=== PATIENT | female | born 1995 | race Caucasian/White ===

== ENCOUNTER 2016-10-31 18:12 | Emergency (ER) | payer OTHER ==
[~2016-10-31] VITALS: Ht 154.9 cm; Wt 56.7 kg
[~2016-10-31 18:12] MED LIST: FOLATE1 MG PO; IRON325 M2 PO; IRON65 M2 PO; PRENATAL VITAMI1 T10 PO
[2016-10-31 18:28] VITALS: BP 116/70
--- NOTE | 2016-10-31 19:58 | NUR ---
PATIENT LEFT WITHOUT BEING SEEN BY DR. mancuso. NO FURTHER CARE PROVIDED FOR PATIENT.
== END 2016-10-31 19:58 | disposition left against medical advice (07) ==
LOC: MED 18:12
DX: N93.9 Abnormal uterine and vaginal bleeding, unspecified (principal); Z53.21 Procedure and treatment not carried out due to patient leaving prior to being seen by health care provider

== ENCOUNTER 2018-03-23 14:47 | Inpatient (IN) | payer OTHER ==
[~2018-03-23] VITALS: Ht 154.9 cm; Wt 65.3 kg
[~2018-03-23 14:47] MED LIST changes: +FERR-142 PO; -FOLATE1 MG PO; +FOLI1TAB19 PO; -IRON325 M2 PO; -IRON65 M2 PO; +PREN-385 PO; -PRENATAL VITAMI1 T10 PO
--- NOTE | 2018-03-23 14:59 | NUR ---
Patient transferred to bed 8 via wheelchair by natalie, accompanied by family. RN evaluating patient at bedside.
[2018-03-23 15:07] VITALS: BP 95/48
[2018-03-23] MEDS ORDERED: NACL 0.9% 1,000 ML IV ONE ×3 (15:15→18:00)
--- NOTE | 2018-03-23 15:24 | NUR ---
PT C/O VAG BLEED W/ LOWER ABD PAIN;PT 9 WEEKS ; DENIES N/V;PT WAS DX W/ ECTOPIC AND TOOK SOME PILLS TO TERMINATE . PATIENT APPEARS PALE, DIAPHORETIC, AND LETHARGIC. 2 IV STARTED. 20RIGHT AC AND 18LEFT FOREARM. PATIENT STATES PAIN OF 0/10 AT THIS TIME; VSS; PATIENT POSITIONED FOR COMFORT; HOB ELEVATED; BEDRAILS UP X1; BED DOWN. ER MD MADE AWARE OF PT STATUS.
[2018-03-23 15:38] LABS: BASOPHILS # (AUTO) 0.1 K/uL (0.00-0.22); BASOPHILS % (AUTO) 0.3 % (0.0-2.0); EOSINOPHILS # (AUTO) 0.3 K/uL (0-0.4); EOSINOPHILS % (AUTO) 1.6 % (0.0-4.0); HEMATOCRIT 35.9 % (36-48); HEMOGLOBIN 11.5 g/dL (12.0-16.0); LYMPHOCYTES # (AUTO) 3.8 K/uL (2.5-16.5); LYMPHOCYTES % (AUTO) 17.7 % (20.5-51.1); MEAN CORPUSCULAR HEMOGLOBIN 28 pg (27-31); MEAN CORPUSCULAR HGB CONC 32 g/dL (33-37); MEAN CORPUSCULAR VOLUME 86.3 fL (80-94); MONOCYTES # (AUTO) 1.1 K/uL (0.8-1.0); MONOCYTES % (AUTO) 5.3 % (1.7-9.3); NEUTROPHILS % (AUTO) 75.1 % (42.2-75.2); PLATELET COUNT (AUTO) 304 K/uL (140-450); RED BLOOD CELL COUNT(AUTO) 4.16 MIL/uL (4.20-5.40); RED CELL DISTRIBUTION WIDTH 13.1 % (11.6-13.7); WHITE BLOOD COUNT (AUTO) 21.3 K/uL (4.8-10.8)
[2018-03-23 15:55] LABS: ANION GAP 14.6 (8-16); CARBON DIOXIDE 21.6 mmol/L (21-32); CREATININE 0.9 mg/dL (0.6-1.3); POTASSIUM 3.2 mmol/L (3.5-5.1)
--- NOTE | 2018-03-23 16:00 | NUR ---
PT HAD A SYNCOPAL EPISODE IN LOBBY
[2018-03-23 16:30] LABS: PROTHROMBIN TIME 9.7 secs (10.8-13.4)
[2018-03-23 17:23] LABS: APPEARANCE,URINE BLOODY (CLEAR); BILIRUBIN,URINE NEGATIVE (NEGATIVE); BLOOD, URINE 3+ (NEGATIVE); COLOR,URINE RED (YELLOW); LEUKOCYTE ESTERASE ,URINE NEGATIVE (NEGATIVE); NITRITE, URINE NEGATIVE (NEGATIVE); UGLUCOSE NEGATIVE (NEGATIVE)
[2018-03-23 17:24] LABS: RBC,URINE TOO NUMEROUS TO COUN /HPF (0-5); WBC,URINE 0-5 (RARE) /HPF (0-5)
[2018-03-23 18:24] LABS: BASOPHILS % (AUTO) 0.1 % (0.0-2.0); EOSINOPHILS % (AUTO) 0.4 % (0.0-4.0); HEMATOCRIT 27.1 % (36-48); HEMOGLOBIN 8.6 g/dL (12.0-16.0); LYMPHOCYTES # (AUTO) 1.1 K/uL (2.5-16.5); LYMPHOCYTES % (AUTO) 9.3 % (20.5-51.1); MEAN CORPUSCULAR HEMOGLOBIN 28 pg (27-31); MEAN CORPUSCULAR HGB CONC 32 g/dL (33-37); MEAN CORPUSCULAR VOLUME 86.9 fL (80-94); MONOCYTES # (AUTO) 0.4 K/uL (0.8-1.0); MONOCYTES % (AUTO) 3.5 % (1.7-9.3); NEUTROPHILS # (AUTO) 9.9 K/uL (1.8-7.7); NEUTROPHILS % (AUTO) 86.7 % (42.2-75.2); PLATELET COUNT (AUTO) 170 K/uL (140-450); RED BLOOD CELL COUNT(AUTO) 3.12 MIL/uL (4.20-5.40); RED CELL DISTRIBUTION WIDTH 13.2 % (11.6-13.7); WHITE BLOOD COUNT (AUTO) 11.4 K/uL (4.8-10.8)
--- NOTE | 2018-03-23 18:30 | NUR ---
PT HAS HAD 2 SYNCOPAL EPISODES IN ER
[2018-03-23] MEDS ORDERED: DOCUSATE SODIUM 100 MG GELCAP PO PRN (18:50)
[2018-03-23] MEDS ORDERED: ONDANSETRON 4 MG/2 ML VIAL IM/IVP PRN (18:50)
--- NOTE | 2018-03-23 19:23 | NUR ---
Pt transferred to Tele via bed with lorena Young 122B.
--- NOTE | 2018-03-23 19:23 | NUR ---
Patient will be admitted to care of [facility]. Admited to TELE . Will go to room 122B. Belongings list completed. Report to PAT MORGAN.
--- NOTE | 2018-03-23 19:25 | NUR ---
PT ARRIVED ON UNIT VIA GURNEY WITH ER NURSE. PT IN STABLE CONDITION. PT ACCOMPANIED BY . PT IS AAOX4. PT IS ON RA. IV ACCESS IN L FA 18G AND R AC 20G. IVS ARE PATENT AND INTACT. PT SKIN IS INTACT. PT HAS NO C/O PAIN AT THIS TIME. MRSA SWAB COLLECTED. ORIENTED PT TO ROOM AND USE OF CALL LIGHT. BED IS LOCKED, LOW POSITION WITH SIDE RAILS UP X2. CALL LIGHT IS WITHIN REACH. BOARD UPDATED. WILL CONTINUE TO MONITOR PT.
[2018-03-23 19:35] LABS: CHOL/HDL RATIO 2.6 (1-4.5); MAGNESIUM 1.8 mg/dL (1.8-2.4); PHOSPHORUS 3.8 mg/dL (2.5-4.9); THYROID STIMULATING HORMONE 1.34 uIU/mL (0.34-3.74)
[2018-03-23 19:40] VITALS: BP 91/53
[2018-03-23 20:06] LABS: BARBITURATE, URINE NEG. ng/ml (NEG <=200); BENZODIAZEPINE, URINE NEG. ng/mL (NEG <=200); CANNABINOID, URINE NEG. ng/mL (NEG <=50); COCAINE, URINE NEG. ng/mL (NEG <=300); OPIATE, URINE NEG. ng/mL (NEG <=2000); PHENCYCLIDINE SCREEN,URINE NEG. ng/mL (NEG <=25)
[2018-03-23] MEDS ORDERED: POTASSIUM CHLORIDE 10 MEQ TABER PO SCH (20:15)
--- NOTE | 2018-03-23 20:45 | NUR ---
PER MD, PT ALLOWED TO HAVE SANDWICH AND WATER. PT TOLERATED WELL. NO C/O NAUSEA. WILL CONTINUE TO MONITOR.
[2018-03-23] MEDS: NACL 0.9% 1,000 ML IV SCH (21:09)
--- NOTE | 2018-03-23 21:10 | NUR ---
ADMINISTERED SCHEDULED MEDICATION AND STARTED ORDERED IVF. ASSISTED PT UP TO RESTROOM. PT TOLERATED WELL. NO REPORTS OF DIZZINESS. PT NOW BACK IN BED. WILL CONTINUE TO MONITOR PT.
--- NOTE | 2018-03-23 23:17 | NUR ---
PT ASLEEP IN BED. NO SIGNS OR SYMPTOMS OF DISTRESS. WILL CONTINUE TO MONITOR.
[2018-03-24] VITALS (9 sets, daily range): BP systolic 79–121; BP diastolic 42–62
--- NOTE | 2018-03-24 | NUR ---
PER MD REQUEST ORTHOSTATIC BP TAKEN: LAYING SUPINE 78/37, HR 79; SITTING 87/43, HR 87; STANDING 89/41 HR 112. PT TOLERATED WELL. NO SIGNS OR SYMPTOMS OF DISTRESS. MD NOTIFIED. MD REQUESTS BP BE REASSESSED IN 30 MIN. WILL CONTINUE TO MONITOR PT.
--- NOTE | 2018-03-24 00:32 | NUR ---
BP REASSESSED 79/[address] GROSS MADE AWARE. WILL WAIT FOR ORDERS.
[2018-03-24] MEDS ORDERED: NACL 0.9% 1,000 ML IV ONE (00:50)
--- NOTE | 2018-03-24 01:00 | NUR ---
BEGAN ORDERED IVF BOLUS. ASSISTED PT TO RESTROOM. PT TOLERATED WELL. NO SIGNS OR SYMPTOMS OF DISTRESS. WILL CONTINUE TO MONITOR.
--- NOTE | 2018-03-24 01:13 | NUR ---
POT OPERATOR HERE TO DRAW PT LABS.
[2018-03-24 01:29] LABS: BASOPHILS % (AUTO) 0.3 % (0.0-2.0); EOSINOPHILS # (AUTO) 0.1 K/uL (0-0.4); EOSINOPHILS % (AUTO) 1.3 % (0.0-4.0); HEMATOCRIT 21.5 % (36-48); HEMOGLOBIN 7.1 g/dL (12.0-16.0); LYMPHOCYTES # (AUTO) 1.6 K/uL (2.5-16.5); LYMPHOCYTES % (AUTO) 19.2 % (20.5-51.1); MEAN CORPUSCULAR HEMOGLOBIN 29 pg (27-31); MEAN CORPUSCULAR HGB CONC 33 g/dL (33-37); MEAN CORPUSCULAR VOLUME 86.4 fL (80-94); MONOCYTES # (AUTO) 0.6 K/uL (0.8-1.0); MONOCYTES % (AUTO) 6.6 % (1.7-9.3); NEUTROPHILS # (AUTO) 6.2 K/uL (1.8-7.7); NEUTROPHILS % (AUTO) 72.6 % (42.2-75.2); PLATELET COUNT (AUTO) 154 K/uL (140-450); RED BLOOD CELL COUNT(AUTO) 2.49 MIL/uL (4.20-5.40); RED CELL DISTRIBUTION WIDTH 13.3 % (11.6-13.7); WHITE BLOOD COUNT (AUTO) 8.6 K/uL (4.8-10.8)
--- NOTE | 2018-03-24 02:20 | NUR ---
PER MD REQUEST CONSENT OBTAINED FOR BLOOD TRANSFUSION. WILL CONTINUE TO MONITOR PT.
[2018-03-24] MEDS: NACL 0.9% 1,000 ML IV SCH ×3 (02:50→16:24)
--- NOTE | 2018-03-24 04:00 | NUR ---
ASSISTED PT UP TO BATHROOM. PT TOLERATED WELL. PT REPORTS VERY MINIMAL SPOTTING. PT NOW BACK IN BED. NO SIGNS OR SYMPTOMS OF DISTRESS. WILL CONTINUE TO MONITOR.
--- NOTE | 2018-03-24 05:41 | NUR ---
PT ASLEEP IN BED. NO SIGNS OR SYMPTOMS OF DISTRESS. WILL CONTINUE TO MONITOR.
--- NOTE | 2018-03-24 06:59 | NUR ---
NEW BAG OF IVF STARTED. PT HAS NO SIGNS OR SYMPTOMS OF DISTRESS. WILL CONTINUE TO MONITOR.
--- NOTE | 2018-03-24 07:03 | NUR ---
CALLED AND SAID THAT BECAUSE PT.TOOK PILL HE CAN NOT DO ANYTHING NOW.HE ORDERED TRANSFUSION 3 UNITS AND LASIX AFTER 2ND UNIT AND LAB AND RD TEST.
--- NOTE | 2018-03-24 07:20 | NUR ---
ENDORSED PT TO DAY SHIFT NURSE FOR CONTINUITY OF CARE. PT IN STABLE CONDITION.
--- NOTE | 2018-03-24 07:25 | NUR ---
RECEIVED REPORT FROM CHIEF LIFESTYLE OFFICER RN. PT IN STABLE CONDITION. AO X4. DENIES DIZZINESS OR FAINTING. STATED THERE IS SPOTTING ON TOILET PAPER AFTER URINATION. NO PROFUSE BLEEDING SEEN. PT IS AMBULATORY. DENIES DIZZINESS WHEN CHANGING POSITIONS FROM [id number]. COMPLAINING OF 2/10 MILD HEADACHE BUT DOES NOT NEED MEDICATION AT THIS TIME. WILL CONTINUE TO MONITOR. LUNGS CTA. HEART RHYTHM REGULAR. IV SITE PATENT AND ASYMPTOMATIC. ALL SAFETY PRECAUTIONS IN PLACE, WILL CONTINUE TO MONITOR.
--- NOTE | 2018-03-24 07:35 | NUR ---
PER DR. RICHARDS, TRANSFER PT TO ICU DUE TO HYPOTENSION THROUGHOUT THE NIGHT.
[2018-03-24] MEDS ORDERED: VANCOMYCIN PER PHARMACY MC PRN (07:50)
--- NOTE | 2018-03-24 08:12 | NUR ---
NOTIFIED DR. COPELAND THAT VITALS ARE BP 98/58, MAP 71, HR 91 NOW WITHOUT DIZZINESS AND ONLY SPOTTING BLOOD NOTED. PER DR. COPELAND, THE PLAN IS STILL TO TRANSFER TO ICU.
--- NOTE | 2018-03-24 08:28 | NUR ---
STARTED FIRST UNIT OF PRBC. WILL CONTINUE TO MONITOR. Addendum: 03/24/18 at 1053 by Althea Llamas Meng, RN 3 UNITS PRBC TOTAL TO BE TRANSFUSED.
--- NOTE | 2018-03-24 08:50 | NUR ---
RECEIVED PT TRANSFERRED FROM [facility], REPORT OBTAINED AT BEDSIDE, PT IS AAOX4, ABLE TO FOLLOW COMMANDS AND MAKE NEEDS KNOWN, C/O SLIGHT HEADACHE 6/10, NO S/S OF RESPIRATORY DISTRESS/SOB, CLEAR LUNG SOUNDS CATALINA. ON RA, DENIES CHEST PAIN, SR ON SURPLUS PROPERTY DISPOSAL AGENT NOTED, SOFT ABDOMEN WITH ACTIVE BOWEL SOUNDS, NPO EXCEPT MEDS, CONTINENT WITH B&B'S, ABLE TO MOVE ALL EXTREMITIES, IV SITE TO RIGHT AC, 20 GA, RUNNING RBC AT 100ML/HR, IV SITE TO LEFT FOREARM, 18 GA, RUNNING NS AT 150ML/HR. SKIN IS WARM AND DRY TO TOUCH, INTACT. EXPLAINED THE POC TO PT, PT VERBALIZED UNDERSTANDING, HOB ELEVATED, SAFETY MEASURES IN PLACE, CALL LIGHT WITHIN REACH, WILL CONTINUE TO MONITOR.
--- NOTE | 2018-03-24 08:50 | NUR ---
PATIENT TRANSFERRED TO ICU WITH BLOOD INFUSING AND ON TRANSPORT MONITOR. REPORT GIVEN TO REGIONAL PSYCHIATRIC DIRECTOR TUAN. PT IN STABLE CONDITION.
[2018-03-24] MEDS: ACETAMINOPHEN 325 MG TAB PO SCH ×3 (09:16→17:00)
--- NOTE | 2018-03-24 10:30 | NUR ---
DR. RUIZ CAME IN TO SEE PT AT BEDSIDE, WILL FOLLOW UP WITH NEW ORDERS.
--- NOTE | 2018-03-24 11:10 | NUR ---
FIRST UNIT OF RBC COMPLETED, NO ADVERSE EFFECTS NOTED, VSS, DENIES PAIN.
--- NOTE | 2018-03-24 11:45 | NUR ---
2ND UNITS OF RBC STARTED, VSS, WILL CONTINUE TO MONITOR.
--- NOTE | 2018-03-24 12:30 | NUR ---
DR. TAYLOR CAME IN TO SEE PT AT BEDSIDE, WILL FOLLOW UP WITH NEW ORDERS. FAMILY MEMBER AT BEDSIDE.
[2018-03-24] MEDS: FUROSEMIDE 20 MG TAB PO SCH ×2 (13:26→16:30)
--- NOTE | 2018-03-24 13:45 | NUR ---
2ND UNIT OF RBC COMPLETED, NO ADVERSE EFFECTS NOTED. VSS. DENIES PAIN.
--- NOTE | 2018-03-24 14:50 | NUR ---
3RD UNIT OF RBC STARTED, WILL CONTINUE TO MONITOR.
--- NOTE | 2018-03-24 17:30 | NUR ---
3RD UNITS OF RBC COMPLETED, NO ADVERSE EFFECTS NOTED, VSS, DENIES PAIN.
--- NOTE | 2018-03-24 18:10 | NUR ---
TRANSFERRED PT BACK TO ROOM 105B VIA BED, REPORT GIVEN TO EDDIE TOLLIVER AT BEDSIDE, PT IS STABLE AT THIS TIME, DENIES PAIN, VSS. ALL BELONGS GOES WITH PT.
--- NOTE | 2018-03-24 18:10 | NUR ---
RECEIVED PT FROM AMPOULE INSPECTOR. PT IN STABLE CONDITION. NO S/S ACUTE DISTRESS. V/S STABLE. DENIES PAIN AND DISCOMFORT. AO X4. ON BEDREST. PT AMBULATORY. LUNGS CTA. HEART RHYTHM REGULAR. PLACED ON TELE MONITOR. PT RECEIVED 3 UNITS PRBC IN ICU. IV SITE PATENT AND ASYMPTOMATIC, INFUSING IVF PER MD ORDERS. ALL SAFETY PRECAUTIONS IN PLACE, WILL CONTINUE TO MONITOR.
--- NOTE | 2018-03-24 19:10 | NUR ---
ENDORSED PLAN OF CARE TO BUNDLING MACHINE OPERATOR RN. PT IN STABLE CONDITION.
--- NOTE | 2018-03-24 19:15 | NUR ---
RECEIVED REPORT FROM DAY SHIFT NURSE, SHAREE, AT PT BEDSIDE. PT IN STABLE CONDITION. PT IS AAOX4. PT IS ON RA. IV ACCESS IN L FA 18G AND R AC 20G. IVS ARE PATENT AND INTACT. PT SKIN IS INTACT. PT HAS NO C/O PAIN AT THIS TIME. BED IS LOCKED, LOW POSITION WITH SIDE RAILS UP X2. CALL LIGHT IS WITHIN REACH. BOARD UPDATED. WILL CONTINUE TO MONITOR PT.
--- NOTE | 2018-03-24 19:15 | NUR ---
ENDORSED PLAN OF CARE TO VETERINARY MEDICINE TEACHER RN. PT IN STABLE CONDITION.
[2018-03-24] MEDS: PIPER/TAZO 3.375GM/D5W PREMIX 50 ML IV SCH (20:01)
--- NOTE | 2018-03-24 20:02 | NUR ---
ADMINISTERED SCHEDULED ANTIBIOTIC. PT TOLERATING WELL. ALL NEEDS ARE MET AT THIS TIME. WILL CONTINUE TO MONITOR.
--- NOTE | 2018-03-24 21:10 | NUR ---
ADMINISTERED SCHEDULED ANTIBIOTIC AND ASSISTED PT UP TO BATHROOM. PT NOW BACK IN BED. PT TOLERATED WELL. NO SIGNS OR SYMPTOMS OF DISTRESS. ALL OTHER NEEDS ARE MET AST THIS TIME. WILL CONTINUE TO MONITOR.
[2018-03-24] MEDS ORDERED: VANCOMYCIN 1GM/DEXT 5% PREMIX 200 ML IV SCH (22:00)
--- NOTE | 2018-03-24 22:30 | NUR ---
PT C/O OF SOME MILD ITCHINESS ON FACE AND ARMS. PT LOOKS FLUSHED IN FACE. STOPPED ANTIBIOTIC INFUSION. CHECKED VITALS T: 98.0, BP: 97/57, HR: 92, 02: 98%, RR: 14. PT HAS NO OTHER COMPLAINTS. INFORMED DR. GROSS, CAME TO SEE PT. TOLD ME TO STOP VANCO INFUSION AND LET HER KNOW IF PT CONTINUES TO FEEL ITCHY. WILL CONTINUE TO MONITOR PT.
--- NOTE | 2018-03-24 23:34 | NUR ---
PT C/O ITCHINESS. BENADRYL GIVEN. PT TOLERATED WELL. ALL OTHER NEEDS ARE MET AT THIS TIME. WILL CONTINUE TO MONITOR.
[2018-03-25] VITALS: BP 97/64
[2018-03-25] MEDS ORDERED: diphenhydrAMINE 50 MG/ML VIAL IVP SCH
[2018-03-25] MEDS: NACL 0.9% 1,000 ML IV SCH ×2 (01:45→05:30)
--- NOTE | 2018-03-25 01:45 | NUR ---
NEW BAG OF IVF STARTED. PT SLEEPING COMFORTABLY IN BED. NO SIGNS OR SYMPTOMS OF DISTRESS. WILL CONTINUE TO MONITOR.
--- NOTE | 2018-03-25 02:55 | NUR ---
PT RESTING COMFORTABLY IN BED. NO SIGNS OF DISTRESS. ALL NEEDS ARE MET AT THIS TIME.
[2018-03-25 04:00] VITALS: BP 99/65
[2018-03-25] MEDS: PIPER/TAZO 3.375GM/D5W PREMIX 50 ML IV SCH (04:32)
--- NOTE | 2018-03-25 04:33 | NUR ---
ADMINISTERED SCHEDULED MEDICATION. PT IS RESTING COMFORTABLY IN BED. NO SIGNS OR SYMPTOMS OF DISTRESS. WILL CONTINUE TO MONITOR.
[2018-03-25 06:58] LABS: BASOPHILS % (AUTO) 0.2 % (0.0-2.0); EOSINOPHILS # (AUTO) 0.2 K/uL (0-0.4); EOSINOPHILS % (AUTO) 2.2 % (0.0-4.0); HEMATOCRIT 31.5 % (36-48); HEMOGLOBIN 10.6 g/dL (12.0-16.0); LYMPHOCYTES # (AUTO) 1.9 K/uL (2.5-16.5); LYMPHOCYTES % (AUTO) 23.4 % (20.5-51.1); MEAN CORPUSCULAR HEMOGLOBIN 29 pg (27-31); MEAN CORPUSCULAR HGB CONC 34 g/dL (33-37); MEAN CORPUSCULAR VOLUME 85.2 fL (80-94); MONOCYTES # (AUTO) 0.4 K/uL (0.8-1.0); MONOCYTES % (AUTO) 5.5 % (1.7-9.3); NEUTROPHILS # (AUTO) 5.6 K/uL (1.8-7.7); NEUTROPHILS % (AUTO) 68.7 % (42.2-75.2); PLATELET COUNT (AUTO) 128 K/uL (140-450); RED CELL DISTRIBUTION WIDTH 14.2 % (11.6-13.7); WHITE BLOOD COUNT (AUTO) 8.2 K/uL (4.8-10.8)
--- NOTE | 2018-03-25 07:02 | NUR ---
ENDORSED PT TO DAY SHIFT NURSE FOR CONTINUITY OF CARE. PT IN STABLE CONDITION.
--- NOTE | 2018-03-25 07:07 | NUR ---
RECEIVED PT FROM ABALONE FISHERMAN NURSE, PT IS AWAKE AND SEATED ON THE BED WITH SIDE RAILS UP AND CALL LIGHT WITHIN REACH, NO SOB OR ANY DISTRESS NOTED, PT DENIES PAIN AT THIS TIME. POC WAS DISCUSSED AND PT VERBALIZED UNDERSTANDING. ASSISTED PT TO THE BATHROOM AND BACK TO BED, WILL CONTINUE TO MONITOR PT.
[2018-03-25 07:09] LABS: MAGNESIUM 1.6 mg/dL (1.8-2.4); PHOSPHORUS 2.6 mg/dL (2.5-4.9)
--- NOTE | 2018-03-25 07:10 | NUR ---
PT'S OTHER IV LINE ON THE LEFT, ON SALINE LOCK ON FA WAS CHECKED, ASYMPTOMATIC. WILL MONITOR PT.
[2018-03-25 08:00] VITALS: BP 99/55
--- NOTE | 2018-03-25 08:23 | NUR ---
PT IS AWAKE AND JUST FINISHED EATING HER BREAKFAST, LACTOBACILLUS MEDICATION WAS GIVEN THRU ORAL AND PT TOLERATED IT. NO SIGN OF DISTRESS NOTED AND WILL CONTINUE TO MONITOR PT.
[2018-03-25] MEDS ORDERED: LACTOBACILLUS RHAMNOSUS GG 1 EACH CAP PO SCH (09:00)
[2018-03-25] MEDS ORDERED: MAGNESIUM OXIDE 400 MG TAB PO SCH (09:00)
--- NOTE | 2018-03-25 09:00 | NUR ---
ACKNOWLEDGED A DISCHARGED ORDER FOR THE PT, WILL FACILITATE D/C PROCESS.
--- NOTE | 2018-03-25 09:14 | NUR ---
PATIENT HAS BEEN SCREENED AND CATEGORIZED MODERATE NUTRITION RISK. PATIENT WILL BE SEEN WITHIN 3-5 DAYS OF ADMISSION. 03/26/18 03/28/[address]
--- NOTE | 2018-03-25 09:30 | NUR ---
DR. GANDARA GAVE INSTRUCTIONS REGARDING THE DISCHARGE OF THE PT, ACKNOWLEDGED.
--- NOTE | 2018-03-25 11:22 | NUR ---
D/C PT VIA WHEELCHAIR WITH THE , DISCHARGE TEACHING AND INSTRUCTION GIVEN TO PT AND PT VERBALIZED UNDERSTANDING, IV LINES AND ARM BANDS REMOVED. PT DENIES PAIN AND IS STABLE AT THIS TIME.
--- NOTE | 2018-03-25 18:09 | NUR ---
Concurrent review faxed to [facility] along with H&P and DS.
[2018-03-25 19:38] LABS: ANION GAP 12.8 (8-16); CARBON DIOXIDE 22.5 mmol/L (21-32); CREATININE 0.6 mg/dL (0.6-1.3); POTASSIUM 3.3 mmol/L (3.5-5.1)
== END 2018-03-25 11:22 | disposition home or self-care (01) | DRG 566 ==
LOC: MED 14:47 → MTU 18:58 → MIC 03-24 08:40 → MTU 03-24 18:24
PROVIDERS: ADMIT General Practice; ATTEND General Practice
PROC: 30233N1 Transfusion of Nonautologous Red Blood Cells into Peripheral Vein, Percutaneous Approach (ICD-10-PCS; principal; 2018-03-23)
DX: O98.811 Other maternal infectious and parasitic diseases complicating pregnancy, first trimester (principal); N17.0 Acute kidney failure with tubular necrosis; R57.1 Hypovolemic shock; A41.9 Sepsis, unspecified organism; O99.351 Diseases of the nervous system complicating pregnancy, first trimester; G90.9 Disorder of the autonomic nervous system, unspecified; O26.831 Pregnancy related renal disease, first trimester; O99.411 Diseases of the circulatory system complicating pregnancy, first trimester; O26.51 Maternal hypotension syndrome, first trimester; O99.011 Anemia complicating pregnancy, first trimester; D64.9 Anemia, unspecified; O26.891 Other specified pregnancy related conditions, first trimester; E87.6 Hypokalemia; R00.0 Tachycardia, unspecified; Z3A.08 8 weeks gestation of pregnancy
CPT/HCPCS: 36415; 76801; 76817; 80048; 80305; 81001; 81025; 83036; 83735; 83880; 84100; 84443; 84484; 84702; 85025; 85610; 85730; 86886; 86900; 86901; 86920; 87040; 87081; 93005; 96360; 96361; 99285; J1200; J2543; J3370; J7030; P9016; Q0092; Q0163